=== PATIENT | male | born 1935 | race Caucasian/White ===

== ENCOUNTER → 2017-06-20 | Outpatient (CLI) | payer MEDICARE ==
[2017-06-20 12:08] LABS: BUN/CREATININE RATIO 16 (0-10)
[2017-06-20 12:21] LABS: RED BLOOD COUNT 5.67 M/UL (4.20-5.50); WHITE BLOOD COUNT 7.5 K/UL (4.5-11.0)
== END ==
LOC: OPSV2 10:30
PROVIDERS: Orthopaedic Surgery
DX: Z01.810 Encounter for preprocedural cardiovascular examination (principal); Z01.812 Encounter for preprocedural laboratory examination; M65.341 Trigger finger, right ring finger
CPT/HCPCS: 36415; 80048; 85025; 93005

== ENCOUNTER → 2021-06-26 | Outpatient (CLI) | payer MEDICARE ==
[~2021-06-26] MED LIST: COLACE 100MG C100 MG PO; NORCO 5-325 TA1 EACH PO; NORCO 7.5-3251 EACH PO
== END ==
LOC: OPSV 12:30
DX: A77.0 Spotted fever due to Rickettsia rickettsii (principal); R53.83 Other fatigue; R53.1 Weakness; M25.50 Pain in unspecified joint
CPT/HCPCS: G0463